=== PATIENT | female | born 1975 | race Two or more races ===

== ENCOUNTER 2024-11-22 18:44 | Emergency (ER) | payer OTHER ==
[~2024-11-22] VITALS: Ht 160 cm; Wt 69.4 kg
[2024-11-22] MEDS ORDERED: GALLIFREY5 MG PO (19:10)
[2024-11-22] MEDS ORDERED: BISOPROLOL FUMAR5 MG PO (19:10)
[2024-11-22] MEDS ORDERED: FAMOTIDINE/PF 20 MG in 0.9 % SODIUM CHLORIDE 8 ML IV PUSH STA (20:06)
[2024-11-22] MEDS ORDERED: hydrALAZINE HCL 20 MG VIAL IV ONE (20:15)
[2024-11-22] MEDS ORDERED: FAMOTIDINE/PF 20 MG/2 ML VIAL ONE (20:27)
[2024-11-22] MEDS ORDERED: hydrALAZINE HCL 20 MG VIAL ONE (20:27)
[2024-11-22 21:06] LABS: BASO % 0.4 % (0.1-1.2); EOS # 0.21 (0.04-0.54); EOS % 1.8 % (0.7-7.0); LYMPH # 2.68 (1.18-3.74); LYMPH % 23.4 % (19.3-53.1); MEAN PLATELET VOLUME 11.60 fl (9.4-12.4); MONO # 0.70 (0.24-0.82); MONO % 6.1 % (4.7-12.5); NEUT # 7.73 (1.56-6.13); NEUT % 67.4 % (34.0-71.1); RED CELL DISTRIBUTION WIDTH 17.8 % (11.6-14.4)
[2024-11-22 22:30] LABS: ALT/SGPT 35.0 U/L (12-78); AST/SGOT 19.0 U/L (15-37); BILIRUBIN TOTAL 0.3 mg/dL (0.3-1.2); BUN CREA RATIO 25.0 (7.0-25.0); CREATININE SERUM 0.71 mg/dL (0.55-1.02); GFR 88.24; GLOBULINA 3.7 G/DL (2.4-3.5); GLUCOSE FASTING 129.0 mg/dL (65-100); OSMOLALITY SERUM 283.0 MOSM/KG (275-295)
[2024-11-22] MEDS ORDERED: BUTALB/ACETAMINOPHEN/CAFFEINE 1 TAB TABLET PO ONE ×2 (23:26→23:30)
[2024-11-22] MEDS ORDERED: KETOROLAC TROMETHAMINE 30 MG VIAL ONE (23:26)
[2024-11-22] MEDS ORDERED: KETOROLAC TROMETHAMINE 30 MG VIAL IV ONE (23:30)
== END 2024-11-23 06:41 | disposition home or self-care (01) ==
LOC: ER 18:44
PROVIDERS: General Practice
DX: I16.9 Hypertensive crisis, unspecified (principal); I10 Essential (primary) hypertension; Z91.018 Allergy to other foods